=== PATIENT | female | born 1950 | race Caucasian/White ===

== ENCOUNTER 2018-03-23 09:15 | Day surgery (SDC) | payer MEDICARE, OTHER ==
[~2018-03-23] VITALS: Ht 170.2 cm; Wt 91.1 kg
[~2018-03-23 09:15] MED LIST: Aspir 8181 MG PO; ERGO400 PO; METO50ER PO; TRIHYD253B PO
[2018-03-23] MEDS ORDERED: VERA240ER (10:11)
[2018-03-23] MEDS ORDERED: ROSU10TA (10:12)
[2018-03-23] MEDS ORDERED: FAMO20 (10:13)
[2018-03-23] MEDS ORDERED: DIAZ5 (10:13)
== END 2018-03-23 11:29 | disposition home or self-care (01) ==
LOC: ORSCSDS 09:15
PROVIDERS: Surgery
PROC: 0DJD8ZZ Inspection of Lower Intestinal Tract, Via Natural or Artificial Opening Endoscopic (ICD-10-PCS; principal; 2018-03-23 10:30)
DX: Z12.11 Encounter for screening for malignant neoplasm of colon (principal); Z80.0 Family history of malignant neoplasm of digestive organs; Z79.82 Long term (current) use of aspirin; E78.5 Hyperlipidemia, unspecified; Z87.891 Personal history of nicotine dependence; Z79.899 Other long term (current) drug therapy; I48.91 Unspecified atrial fibrillation
CPT/HCPCS: J7120

== ENCOUNTER 2019-02-03 10:51 | Day surgery (SDC) | payer MEDICARE, OTHER ==
[~2019-02-03] VITALS: Ht 167.6 cm; Wt 92.1 kg
[~2019-02-03 10:51] MED LIST changes: +Adult Low Dose81 MG PO; +DIAZ5; +DIAZ5 PO; +DILTIAZEM 24HR180 M2 PO; +Dyazide 37.5-21 EACH PO; +FAMO20; +ROSU10TA; +ROSU10TA PO; +VERA240ER; +VITAMIN D32000 UNIT PO
--- NOTE | 2019-02-03 11:33 | NUR ---
02/03/19 1133 Tanja Dodge V PT RESTING IN BED, SIDE RAILS IN PLACE, CALL LIGHT WITHIN REACH, VSS. PT TEACHING COMPLETED. PT DENIES PAIN, DISCOMFORT, AND QUESTIONS AT THIS TIME.
== END 2019-02-03 14:00 | disposition home or self-care (01) ==
LOC: ORSCSDS 10:51
PROVIDERS: Orthopaedic Surgery
PROC: 01N54ZZ Release Median Nerve, Percutaneous Endoscopic Approach (ICD-10-PCS; principal; 2019-02-03 12:30)
DX: G56.02 Carpal tunnel syndrome, left upper limb (principal); I10 Essential (primary) hypertension; I25.10 Atherosclerotic heart disease of native coronary artery without angina pectoris; Z87.891 Personal history of nicotine dependence; Z79.899 Other long term (current) drug therapy; Z79.82 Long term (current) use of aspirin; E66.9 Obesity, unspecified; Z68.32 Body mass index [BMI] 32.0-32.9, adult
CPT/HCPCS: J0690; J2250; J3010

== ENCOUNTER → 2019-10-05 | Outpatient (CLI) | payer MEDICARE, OTHER ==
[2019-10-05 15:28] LABS: Source, Urine Clean Catch
[2019-10-05 17:00] LABS: Bilirubin, Urine Neg (Neg); Blood, Urine 1+ (Neg); Glucose Qualitative, Urine Neg (Neg); Ketones, Urine 1+ (Neg); Leukocyte Esterase, Urine Neg (Neg); Nitrite, Urine Neg (Neg); Protein, Urine Neg (Neg); Urobilinogen, Urine NORM (Normal)
[2019-10-05 17:15] LABS: Appearance, Urine Clear (Clear); Color, Urine Pale Yellow (P-Yellow)
[2019-10-05 17:17] LABS: Bacteria Few /hpf; Red Blood Cells, Urine 0-2 /hpf (0-2); Squamous Epithelial Cells Rare /hpf (Few); White Blood Cells, Urine 0-2 /hpf (0-5)
== END | disposition home or self-care (01) ==
LOC: LAB SHORT 15:26 → LAB 15:26
PROVIDERS: Internal Medicine
DX: E78.2 Mixed hyperlipidemia (principal); I10 Essential (primary) hypertension; R35.0 Frequency of micturition; I48.91 Unspecified atrial fibrillation
CPT/HCPCS: 81001

== ENCOUNTER 2021-05-22 06:45 | Day surgery (SDC) | payer MEDICARE, OTHER | END 2021-05-22 09:22 | disposition home or self-care (01) | LOC: ORSCSDS 06:45 | PROC: 01N54ZZ Release Median Nerve, Percutaneous Endoscopic Approach (ICD-10-PCS; principal; 2021-05-22) | PROC: 0LB50ZZ Excision of Right Lower Arm and Wrist Tendon, Open Approach (ICD-10-PCS; principal; 2021-05-22) | DX: G56.01 Carpal tunnel syndrome, right upper limb (principal); M67.431 Ganglion, right wrist; I10 Essential (primary) hypertension; J44.9 Chronic obstructive pulmonary disease, unspecified; I48.91 Unspecified atrial fibrillation; Z79.899 Other long term (current) drug therapy; Z79.82 Long term (current) use of aspirin ==

== ENCOUNTER 2022-09-04 11:36 | Day surgery (SDC) | payer MEDICARE, OTHER ==
[~2022-09-04] VITALS: Ht 170.2 cm; Wt 86.1 kg
[~2022-09-04 11:36] MED LIST changes: +ALBU90OI INH; -DILTIAZEM 24HR180 M2 PO; +DILTIAZEM HCL120 MG PO; +ELIQUIS5 M2 PO; +FAMO20 PO; +TRELEGY ELLIPT1 EACH IH
[2022-09-04] MEDS ORDERED: Acetaminophen650 M1 (12:05)
[2022-09-04] MEDS ORDERED: SYMBICORT 80-10.2 GM (12:07)
--- NOTE | 2022-09-04 12:29 | NUR ---
09/04/22 1229 Angelita Mcdonald AT [address] AT 1210
== END 2022-09-04 13:47 | disposition home or self-care (01) ==
LOC: ORSCSDS 11:36
PROVIDERS: Ophthalmology
PROC: 08DJ3ZZ Extraction of Right Lens, Percutaneous Approach (ICD-10-PCS; principal; 2022-09-04 13:00)
DX: H25.11 Age-related nuclear cataract, right eye (principal); I48.91 Unspecified atrial fibrillation; E78.5 Hyperlipidemia, unspecified; I10 Essential (primary) hypertension; K21.9 Gastro-esophageal reflux disease without esophagitis; Z79.01 Long term (current) use of anticoagulants; Z79.899 Other long term (current) drug therapy
CPT/HCPCS: J2001; J2250; J3010; J3301; J7040; V2632

== ENCOUNTER 2022-09-11 11:49 | Day surgery (SDC) | payer MEDICARE, OTHER ==
[~2022-09-11] VITALS: Ht 170.2 cm; Wt 85.9 kg
[~2022-09-11 11:49] MED LIST changes: +Acetaminophen650 M1; +SYMBICORT 80-10.2 GM
== END 2022-09-11 14:23 | disposition home or self-care (01) ==
LOC: ORSCSDS 11:49
PROVIDERS: Ophthalmology
PROC: 08DK3ZZ Extraction of Left Lens, Percutaneous Approach (ICD-10-PCS; principal; 2022-09-11 13:00)
DX: H25.12 Age-related nuclear cataract, left eye (principal); I10 Essential (primary) hypertension; I48.91 Unspecified atrial fibrillation; K21.9 Gastro-esophageal reflux disease without esophagitis; Z87.891 Personal history of nicotine dependence; J44.9 Chronic obstructive pulmonary disease, unspecified; E66.9 Obesity, unspecified; Z68.30 Body mass index [BMI] 30.0-30.9, adult; Z79.01 Long term (current) use of anticoagulants; Z79.899 Other long term (current) drug therapy
CPT/HCPCS: J2001; J2250; J3010; J3301; J7040; V2632

== ENCOUNTER 2023-09-28 23:49 | Observation (INO) | payer MEDICARE ==
[~2023-09-28] VITALS: Ht 170.2 cm; Wt 81.4 kg
[~2023-09-28 23:49] MED LIST changes: +THERA-D2000 UNIT PO; -VITAMIN D32000 UNIT PO
[2023-09-29 00:20] LABS: BASOPHILS ABSOLUTE AUTO 0.06 K/mm3 (0.00-0.23); BASOPHILS PERCENT AUTO 1 % (0-2); EOSINOPHILS ABSOLUTE AUTO 0.11 K/mm3 (0.00-0.68); EOSINOPHILS PERCENT AUTO 1 % (0-6); Hemoglobin 15.8 g/dL (11.5-16.0); IMMATURE GRAN ABSOLUTE AUTO 0.04 K/mm3 (0.00-0.10); IMMATURE GRAN PERCENT AUTO 0 % (0-1); LYMPHOCYTES ABSOLUTE AUTO 2.81 K/mm3 (0.84-5.20); LYMPHOCYTES PERCENT AUTO 26 % (21-46); MONOCYTES ABSOLUTE AUTO 1.09 K/mm3 (0.16-1.47); MONOCYTES PERCENT AUTO 10 % (4-13); Mean Corpuscular HGB 33.1 pg (26.0-34.0); Mean Corpuscular HGB Conc 33.6 g/dL (31.5-36.5); Mean Corpuscular Volume 98 fL (80-100); Mean Platelet Volume 9.7 fL (9.1-12.4); NEUTROPHILS ABSOLUTE AUTO 6.87 K/mm3 (1.96-9.15); NEUTROPHILS PERCENT AUTO 63 % (41-73); Platelet Count 291 K/mm3 (150-400); RDW Coefficient Variation 12.9 % (11.7-14.2); RDW Standard Deviation 46.6 fL (35.1-46.3); Red Blood Cell Count 4.78 M/mm3 (3.80-5.20); White Blood Cell Count 10.98 K/mm3 (4.00-11.30)
[2023-09-29] MEDS ORDERED: METOPROLOL SUCC25 MG PO (00:34)
[2023-09-29] MEDS ORDERED: CYMBALTA30 M2 PO (00:35)
[2023-09-29 02:06] LABS: Albumin, Blood 3.5 g/dL (3.4-5.0); Albumin/Globulin Ratio 1.1 (0.8-1.8); Bilirubin, Total 0.4 mg/dL (0.1-1.0); Bun/Creatinine Ratio 26.4 (12.0-20.0); Calcium, Blood 8.8 mg/dL (8.5-10.1); Creatinine, Blood 0.8 mg/dL (0.40-1.00); Globulin, Blood 3.1 g/dL (2.2-4.0); Magnesium, Blood 2.2 mg/dL (1.6-2.4); Phosphorus, Blood 2.7 mg/dL (2.5-4.9); Potassium, Blood 3.5 mmol/L (3.5-5.5); Thyroid Stimulating Hormone 0.277 uIU/mL (0.360-4.800); Total Protein, Blood 6.6 g/dL (6.4-8.2)
[2023-09-29 05:55] VITALS: BP 165/117
[2023-09-29 06:40] LABS: BASOPHILS ABSOLUTE AUTO 0.07 K/mm3 (0.00-0.23); BASOPHILS PERCENT AUTO 1 % (0-2); EOSINOPHILS ABSOLUTE AUTO 0.08 K/mm3 (0.00-0.68); EOSINOPHILS PERCENT AUTO 1 % (0-6); Hemoglobin 14.8 g/dL (11.5-16.0); IMMATURE GRAN ABSOLUTE AUTO 0.04 K/mm3 (0.00-0.10); IMMATURE GRAN PERCENT AUTO 0 % (0-1); LYMPHOCYTES PERCENT AUTO 25 % (21-46); MONOCYTES ABSOLUTE AUTO 1.41 K/mm3 (0.16-1.47); MONOCYTES PERCENT AUTO 12 % (4-13); Mean Corpuscular HGB 33.1 pg (26.0-34.0); Mean Corpuscular HGB Conc 33.6 g/dL (31.5-36.5); Mean Corpuscular Volume 98 fL (80-100); Mean Platelet Volume 9.7 fL (9.1-12.4); NEUTROPHILS ABSOLUTE AUTO 6.97 K/mm3 (1.96-9.15); NEUTROPHILS PERCENT AUTO 61 % (41-73); Platelet Count 252 K/mm3 (150-400); RDW Coefficient Variation 12.9 % (11.7-14.2); RDW Standard Deviation 46.6 fL (35.1-46.3); Red Blood Cell Count 4.47 M/mm3 (3.80-5.20); White Blood Cell Count 11.47 K/mm3 (4.00-11.30)
--- NOTE | 2023-09-29 07:08 | NUR ---
NOC SHIFT SUMMARY: PT A&O X4. MRI PENDING. ECHO PENDING. CAME IN FOR TIA. SYMPTOMS RESOLVED. FALL RISK. BED IN LOW POSITION. CALL LIGHT WITHIN REACH. SBA.
[2023-09-29 07:12] LABS: Alanine Aminotransfer (ALT/SGP 47 U/L (12-78); Albumin, Blood 3.4 g/dL (3.4-5.0); Albumin/Globulin Ratio 1.3 (0.8-1.8); Alk Phos 72 U/L (50-136); Anion Gap 7 mmol/L (6-16); Aspartate Aminotrans (AST/SGOT 41 U/L (12-37); Bilirubin, Total 0.2 mg/dL (0.1-1.0); Blood Urea Nitrogen 20 mg/dL (8-24); Bun/Creatinine Ratio 27.6 (12.0-20.0); CHOL/HDL RATIO 2.5; CO2, Blood 25 mmol/L (21-32); Calcium, Blood 8.5 mg/dL (8.5-10.1); Chloride, Blood 107 mmol/L (98-108); Cholesterol 117 mg/dL (50-200); Creatinine, Blood 0.73 mg/dL (0.40-1.00); Free Thyroxine 1.84 ng/dL (0.70-1.60); Globulin, Blood 2.7 g/dL (2.2-4.0); Glomerular Filtration Rate 86 (60-); Glucose, Blood 106 mg/dL (70-99); HDL Cholesterol 47 mg/dL (>39); LDL/HDL RATIO 1.1; Low Density Lipoprotein Chol 54 mg/dL (0-110); Potassium, Blood 3.5 mmol/L (3.5-5.5); Sodium, Blood 139 mmol/L (136-145); Total Protein, Blood 6.1 g/dL (6.4-8.2); Triglycerides 81 mg/dL (30-160); Very Low Density Lipoprot Chol 16 mg/dL (6-32)
[2023-09-29 07:55] VITALS: BP 166/98
[2023-09-29 09:42] LABS: Source, Urine Clean Catch
[2023-09-29 09:47] LABS: Appearance, Urine Hazy (Clear); Bilirubin, Urine Neg (Neg); Blood, Urine 1+ (Neg); Color, Urine Yellow (P-Yellow); Glucose Qualitative, Urine Neg (Neg); Ketones, Urine Neg (Neg); Leukocyte Esterase, Urine Neg (Neg); Nitrite, Urine Neg (Neg); Protein, Urine 1+ (Neg); Urobilinogen, Urine NORM (Normal)
[2023-09-29 09:58] LABS: Bacteria Many /hpf; Squamous Epithelial Cells Mod /hpf (Few); Transitional Epithelial Cells Rare /hpf (0-Rare)
[2023-09-29 15:23] VITALS: BP 145/98
--- NOTE | 2023-09-29 18:20 | NUR ---
SHIFT SUMMARY; PATIENT HAD MRI OF HEAD TODAY ALONG WITH CAROTID STUDY AND ECHOCARDIOGRAM. PATIENT IS AO X 4. LAUGHS WHEN SPEAKING WITH AND SAYS SHE CANNOT DECIDE IF SHE WANTS TO GO HOME TODAY OR TOMORROW. HER SPOUSE DOES NOT DRIVE (HISTORY OF CVA) AND HAS CALLED THE [employer] WHO IS ALSO A LONG TIME FAMILY FRIEND AND HE WILL BRING TO [facility] TOMORROW AND INSULATOR HELPER PAITENT WHEN SHE IS DISCHARGED. PHONE NUMBER FOR [employer] (TREY) IS [phone] HE WOULD LIKE NURSE TO CALL HIM TO LET HIM KNOW WHEN TO COME IT IS ABOUT AN HOUR DRIVE HERE.
[2023-09-29 19:17] VITALS: BP 142/97
[2023-09-30 02:52] VITALS: BP 146/90
--- NOTE | 2023-09-30 04:28 | NUR ---
SHIFT SUMMARY ADMITTED FOR TIA. FULL CODE. PLAN IS FOR ELIQUIS AND PLAVIX. RIGHT SIDED DEFICITS AND WORD SALAD REPORTED. SHE IS ABLE TO COMMUNICATE WITH US THIS SHIFT AND MAKE HER NEEDS KNOWN. TELEMETRY SHOWS AFIB @ 88 BPM. CARDIAC DIET. ON RA. SHE IS ABLE TO AMBULATE TO THE BATHROOM UNASSISTED THIS SHIFT.
[2023-09-30 07:14] VITALS: BP 176/116
[2023-09-30 09:17] VITALS: BP 163/107
[2023-09-30] MEDS ORDERED: CLOP75 PO (11:20)
--- NOTE | 2023-09-30 13:23 | NUR ---
DISCHARGE NOTE- PT WAS GIVEN VERBAL AND WRITTEN DISCHARGE INSTRUCTIONS AND ACKNOWLEDGED UNDERSTANDING OF THEM. MEDS FAXED TO [facility] PER PT REQUEST. IV AND TELE DC'D PRIOR TO PT DISCHARGE. PT DRESSED HERSELF AND WAS ESCORTED OUT VIA WC BY THE FULFILLMENT COORDINATOR. NO S&S OF DISTRESS NOTED AT THE TIME OF DISCHARGE.
[2023-10-04 11:23] LABS: HEMOGLOBIN A1C 5.8 % (4.8-5.6)
== END 2023-09-30 12:40 | disposition home health service (06) ==
LOC: ER 23:49 → MEDS 23:50 → ERHOLD 23:50 → MEDS 09-29 05:46 → ENPENDDIS 09-30 12:16 → MEDS 09-30 12:40
PROVIDERS: Emergency Medicine; Family Medicine; Internal Medicine; ADMIT Student in an Organized Health Care Education/Training Program
DX: G45.9 Transient cerebral ischemic attack, unspecified (principal); I48.91 Unspecified atrial fibrillation; J44.9 Chronic obstructive pulmonary disease, unspecified; K21.9 Gastro-esophageal reflux disease without esophagitis; F32.A Depression, unspecified; R73.9 Hyperglycemia, unspecified; Z79.899 Other long term (current) drug therapy; Z88.8 Allergy status to other drugs, medicaments and biological substances
CPT/HCPCS: 36415; 70450; 70551; 71046; 80053; 80061; 81001; 82947; 83036; 83605; 83735; 84100; 84439; 84443; 84484; 85025; 85730; 93005; 93010; 93306; 93880; 94760; 96360; 96361; 99285-25; A9270; G0378; J7030